=== PATIENT | male | born 1940 | race Caucasian/White ===

== ENCOUNTER → 2020-07-19 | Outpatient (CLI) | payer MEDICARE, OTHER | END | disposition home or self-care (01) | LOC: CFH 07:53 | PROVIDERS: ATTEND Internal Medicine Clinical Cardiac Electrophysiology | DX: I08.0 Rheumatic disorders of both mitral and aortic valves (principal); Z87.898 Personal history of other specified conditions | CPT/HCPCS: 93306 ==